=== PATIENT | male | born 1940 | race Caucasian/White ===

== ENCOUNTER 2016-11-23 12:50 | Emergency (ER) | payer MEDICARE, BC ==
[~2016-11-23] VITALS: Ht 180.3 cm; Wt 78.2 kg
[2016-11-23 12:54] VITALS: BP 160/95; PULSE 73; TEMP 98.1
[2016-11-23] MEDS ORDERED: PREDNISONE10 MG PO (13:11)
[2016-11-23] MEDS ORDERED: PEPCID 20MG TAB20 MG PO (13:11)
[2016-11-23] MEDS ORDERED: TRIAMCINOLONE AC0.13 TOP (13:11)
== END 2016-11-23 13:23 | disposition home or self-care (01) ==
LOC: COL.ER 12:50
DX: L25.9 Unspecified contact dermatitis, unspecified cause (principal)

== ENCOUNTER 2021-10-14 10:14 | Outpatient (CLI) | payer MEDICARE, BC ==
[~2021-10-14] VITALS: Ht 180.3 cm; Wt 75.0 kg
[2021-10-14] VITALS (8 sets, daily range): BP systolic 138–159; BP diastolic 75–96; PULSE 69–79; TEMP 98
[~2021-10-14 10:14] MED LIST: MASON NATURAL2000 IU PO; PEPCID 20MG TAB20 MG PO; PHARMASSURE ZIN50 MG PO; PREDNISONE10 MG PO; TRIAMCINOLONE AC0.13 TOP; VITAMIN C500 MG PO
--- NOTE | 2021-10-14 11:45 | NUR ---
Pt tolerated infusion and one hr observation period without issue. INT DC'd with catheter intact. He is escorted out to ED entrance to meet his .
== END 2021-10-14 11:45 | disposition home or self-care (01) ==
LOC: EUO 10:14
DX: U07.1 COVID-19 (principal)
CPT/HCPCS: M0245

== ENCOUNTER 2023-09-19 15:02 | Inpatient (IN) | payer MEDICARE, BC ==
[~2023-09-19] VITALS: Ht 172.7 cm; Wt 71.8 kg
[2023-09-19 16:13] LABS: BASO % 0.3 % (0.0-2.0); EOS % 0.3 % (0.0-4.0); GRAN # 12.9 K/mm3 (1.4-6.5); GRAN % 89.2 % (42.2-75.2); HEMATOCRIT 39.7 % (42.0-52.0); HEMOGLOBIN 13.8 g/dl (13.5-18.0); LYMPH # 0.6 K/mm3 (1.2-3.4); LYMPH % 4.4 % (20.0-51.0); MEAN CELL VOLUME 95 fl (80.0-100.0); MEAN CORPUSCULAR HEMOGLOBIN 33 pg (27-31); MEAN CORPUSCULAR HGB CONC 35 g/dl (33.0-37.0); MEAN PLATELET VOLUME 9.5 fl (7.4-10.4); MONO # 0.7 K/mm3 (0.1-0.6); PLATELET COUNT 175 K/mm3 (130-400); RED BLOOD COUNT 4.16 M/mm3 (4.20-5.60); REDCELL DISTRIBUTION WIDTH-CV 12.8 % (11.5-14.5)
[2023-09-19 16:30] LABS: BILIRUBIN,TOTAL 2.1 mg/dL (0.2-1.2); CALCIUM 10.1 mg/dL (8.4-10.2); CREATININE, serum 1.04 mg/dL (0.72-1.25); TOTAL PROTEIN 7.6 gm/dL (6.2-8.1)
[2023-09-19 16:57] LABS: COLLECTION METHOD CATHETER
[2023-09-19 17:22] LABS: PH 6.5 (5.0-8.5); URINE APPEARANCE Clear (CLEAR/HAZY); URINE COLOR Yellow (YELLOW); URINE GLUCOSE Negative (NEGATIVE); URINE KETONE 1+ (NEGATIVE); URINE PROTEIN(semi-quant) TRACE (NEGATIVE)
[2023-09-19 17:23] LABS: MUCOUS Present (NOT PRESENT); URINE BLOOD TRACE-LYSED (NEGATIVE); URINE NITRATE Negative (NEGATIVE); URINE RBC 0-2 /hpf (0-2)
[2023-09-19] MEDS ORDERED: VOLTAREN 50MG T50 MG PO (18:42)
[2023-09-19] MEDS ORDERED: VITAMIN B1 50 MG (18:47)
[2023-09-19 20:28] VITALS: BP 162/78; PULSE 90; TEMP 98.4
--- NOTE | 2023-09-19 23:30 | NUR ---
PATIENT VITAL SIGNS SKIPED AT THIS TIME DUE TO PATIENT HAVING INCREASED AGITATION AT NIGHT DUE TO DEMENTIA. AT BEDSIDE. VITAL SIGNS WILL BE TAKEN ONCE PATIENT AWAKE.
[2023-09-20] VITALS (16 sets, daily range): BP systolic 118–162; BP diastolic 56–86; PULSE 79–98; TEMP 97.9–98.6
--- NOTE | 2023-09-20 06:30 | NUR ---
PATIENT RESTED AT INTERVALS. AT BEDSIDE. ZOSYN INFUSING INTO RIGHT AC WITH NO COMPLICATIONS NOTED. PATIENT HAD MORPHINE FOR PAIN AND TOLERATED WELL. ALL NEEDS MET. BED IN LOW POSITION WITH WHEELS LOCKED WITH RAILS UP X3 AND CALL LIGHT WITHIN REACH. BED ALARM ON.
[2023-09-20 07:57] LABS: BASO % 0.2 % (0.0-2.0); EOS % 0.1 % (0.0-4.0); GRAN # 14.5 K/mm3 (1.4-6.5); GRAN % 88.8 % (42.2-75.2); HEMATOCRIT 39.5 % (42.0-52.0); HEMOGLOBIN 13.5 g/dl (13.5-18.0); LYMPH # 0.7 K/mm3 (1.2-3.4); LYMPH % 4.5 % (20.0-51.0); MEAN CELL VOLUME 96 fl (80.0-100.0); MEAN CORPUSCULAR HEMOGLOBIN 33 pg (27-31); MEAN CORPUSCULAR HGB CONC 34 g/dl (33.0-37.0); MEAN PLATELET VOLUME 9.8 fl (7.4-10.4); MONO # 0.9 K/mm3 (0.1-0.6); MONO % 5.5 % (1.7-9.3); PLATELET COUNT 181 K/mm3 (130-400); RED BLOOD COUNT 4.12 M/mm3 (4.20-5.60)
[2023-09-20 08:15] LABS: CALCIUM 10.1 mg/dL (8.4-10.2); POTASSIUM 4.1 mmol/L (3.5-4.5)
--- NOTE | 2023-09-20 09:16 | NUR ---
PT RESTING IN BED, AT BEDSIDE. IV MORPHINE FOR PAIN CONTROLL. CT SCAN OF ABDOMEN TO DETERMINE TX PLAN. PT IS VERY CONFUSED WITH BASELINE DEMENTIA.
--- NOTE | 2023-09-20 09:49 | NUR ---
Superintendent Operating met with Patient, , and Son, Prashanth at bedside to conduct Care Managment Assessment. Patient's reports to be DPOA[facility], SW requested she bring a copy to place in chart. Patient is established with PCP through [facility] and is covered by [facility] and [facility] for insruance. Patient's requests discharge medications be sent to [facility]. Patient is reported to not use DME prior to admission and is independent with ambulation and recieves assistance with showering and toileting prior to admission. Patient's states that she is able to meet Patient's needs with no concerns at this time. PT/OT ordered to assess Patient functioning.
--- NOTE | 2023-09-20 10:35 | NUR ---
FAMILY REQUESTING PAIN MEDICATION FOR PT. ON ASSESSMENT OF CURRENT PAIN LEVEL PT WAS SLEEPING QUIETLY. EXPLAINED TO FAMILY THAT WE DONT WAKE PATIENTS UP TO GIVE PAIN MEDICATION. IF PT SHOWS SIGNS OF PAIN FAMILY WILL NOTIFY NURSING.
--- NOTE | 2023-09-20 19:00 | NUR ---
to room from PACU per bed, bedside shift report received from Darrell RN and Michael PROFESSIONAL SYSTEM ADMINISTRATOR nurse, O2 sat drops to 89% on room air and O2 on at 2L/nC, IV infusign per gravity to right antecubital area, 5 robotic sites to ABD CD&I, patient is sleeping and only arouses minimally, family at bedside
--- NOTE | 2023-09-20 19:30 | NUR ---
full assessment completed, see interventions for further info
--- NOTE | 2023-09-20 19:45 | NUR ---
continues to sleep, attempt to arouses and only minimal response, son at bedside states at his best sometimes it is minimal, will monitor
--- NOTE | 2023-09-20 20:45 | NUR ---
continues to sleep, when his name is called and have minimal shaking to his shoulders he wrinkles his eyebrows with this, soncolt remains at bedside and sees this response,
--- NOTE | 2023-09-20 21:50 | NUR ---
entered room as O2 sat monitor, was off, son states the patient aroused and was moving about and it came offy
--- NOTE | 2023-09-20 22:45 | NUR ---
doesn't open his eyes but moves about a bit while VS being obtained
[2023-09-21] VITALS (7 sets, daily range): BP systolic 130–173; BP diastolic 70–80; PULSE 80–90; TEMP 97.5–97.8
--- NOTE | 2023-09-21 01:15 | NUR ---
IV antibiotic started, he is now awake and very fidgety and moving around in bed, son at bedside and trying to talk to him, he has not been incontinent but is pulling at wrap around penis, placed urinal and tried to encourage him to void, with his son's assistance he stood at the bedside but did not void, he was laid back in bed, antibiotic completed and lights off and will monitor if he can resume resting quietly, son remains at bedside, informed son to let this nurse know if he needs any assistance, he verbalizes understanding
--- NOTE | 2023-09-21 01:40 | NUR ---
son calls and patient is trying to get out of bed, sat up on side of bed, ALECIA, son, and this nurse trying to get him to go back to bed without success, medicated with seroquel 25mg po, and still is trying to remove gown and get up
--- NOTE | 2023-09-21 02:45 | NUR ---
remains restless and moving about in bed, trying to pull IV etc, ROBBIE Norton notified, not medicated with ativan 0.25mg slow IV, MEDICAL ASST remains at bedside assisting to keep him in bed and not pull at IV etc, son also at bedside
--- NOTE | 2023-09-21 03:10 | NUR ---
is now starting to quiet down and rest, son and CREMATOR remain at bedside
--- NOTE | 2023-09-21 03:28 | NUR ---
he now appears to be sleeping, son remains at bedside
--- NOTE | 2023-09-21 03:49 | NUR ---
continues to rest quietly with eyes closed and lights off
--- NOTE | 2023-09-21 04:10 | NUR ---
is becoming fidgety again, has not voided since returning from surgery, bladder scan by DOPE EDGER revealed approx 550ml urine, DOPE EDGER and son assisted him standing and he voided aprox 200ml clear estiven urine, then laying back in bed
--- NOTE | 2023-09-21 04:30 | NUR ---
is resting in bed and moving arms about at intervals, son at bedisde
--- NOTE | 2023-09-21 05:17 | NUR ---
appears to be sleeping, resp quiet and easy, son also appears to be sleeping
--- NOTE | 2023-09-21 05:30 | NUR ---
remains in recliner and appears to be sleeping, resp quiet and easy
--- NOTE | 2023-09-21 07:02 | NUR ---
bedside shift report given to TRINIDAD Sheridan, patient is in bed and sleeping at this time
--- NOTE | 2023-09-21 07:14 | NUR ---
RECIEVED REPORT FROM ALBERT VILLEDA RN.
[2023-09-21 09:06] LABS: HEMOGLOBIN 11.7 g/dl (13.5-18.0); MEAN CELL VOLUME 95 fl (80.0-100.0); MEAN CORPUSCULAR HEMOGLOBIN 33 pg (27-31); MEAN CORPUSCULAR HGB CONC 35 g/dl (33.0-37.0); MEAN PLATELET VOLUME 10.4 fl (7.4-10.4); PLATELET COUNT 173 K/mm3 (130-400); RED BLOOD COUNT 3.56 M/mm3 (4.20-5.60); REDCELL DISTRIBUTION WIDTH-CV 12.8 % (11.5-14.5)
[2023-09-21 09:12] LABS: HEMATOCRIT 33.9 % (42.0-52.0)
--- NOTE | 2023-09-21 11:04 | NUR ---
Upon entering patients room this morning he is accompanied by multiple family members. Pt is confused and does not follow commands, when asking questions his responses are not clear. Unable to reorient, he is trying to get out of the bed but unclear on where he wants to go. Shift assssment complete, VSS. Medicated per emar, no grimace or clenching of his face noted. Even, unlabored respr. Denies need for anything further at this time. Worked with physical therapy this morning. Family remains at bedside.
--- NOTE | 2023-09-21 14:05 | NUR ---
Aerospace Technician met with patient's and daughter at bedside to review discharge plan. Patient appeared confused and was actively trying to get up from his chair. Patient's and daughter were able to redirect him. SW reviewed PT/OT recommendation for SNF and patient's politely declined stating they are able to care for him at home. Patient's family also mentioned he does better in his own environment and this behavior is not baseline. Patient's family is open to Home Health services so SW provided Medicare.gov list of HH agencies for review. Discharge Plan: Home with possible HH
[2023-09-21] MEDS ORDERED: AMOXICILLIN 8751 TAB PO (15:19)
--- NOTE | 2023-09-21 17:42 | NUR ---
ALL DISCHARGE INSTRUCTIONS EXPLAINED AND QUESTIONS ANSWERED. INT TO RIGHT AC REMOVED,ALL BELONGING'S SENT HOME. PT ESCORTED BY STAFF OFF UNIT AT 1700 TO PRIVATE VEHICLE.
== END 2023-09-21 17:00 | disposition home or self-care (01) | DRG 418 ==
LOC: COL.ER 15:02 → SURG 18:21
PROVIDERS: Internal Medicine; Nurse Practitioner Family; Personal Emergency Response Attendant; Surgery; ADMIT Internal Medicine
PROC: 8E0W4CZ Robotic Assisted Procedure of Trunk Region, Percutaneous Endoscopic Approach (ICD-10-PCS; 2023-09-20)
PROC: 0FT44ZZ Resection of Gallbladder, Percutaneous Endoscopic Approach (ICD-10-PCS; principal; 2023-09-20 16:00)
DX: K81.0 Acute cholecystitis (principal); F03.C11 Unspecified dementia, severe, with agitation; M48.56XA Collapsed vertebra, not elsewhere classified, lumbar region, initial encounter for fracture; M47.816 Spondylosis without myelopathy or radiculopathy, lumbar region; R53.81 Other malaise; R73.9 Hyperglycemia, unspecified; Z20.822 Contact with and (suspected) exposure to COVID-19; Z87.891 Personal history of nicotine dependence; Z79.899 Other long term (current) drug therapy
CPT/HCPCS: C9113; J1100; J2060; J2270; J2371; J2405; J2543; J2704; J3010; J7120; Q9967